=== PATIENT | male | born 1955 | race Caucasian/White ===

== ENCOUNTER 2023-12-18 14:00 | Outpatient (RCR) | payer MEDICARE, SELFPAY | END 2024-05-05 10:50 | disposition home or self-care (01) | LOC: HO.PTCHIC 14:00 | PROVIDERS: PCP Family Medicine; Visit Provider Orthopaedic Surgery | DX: M25.812 Other specified joint disorders, left shoulder (principal); M19.012 Primary osteoarthritis, left shoulder | CPT/HCPCS: 97035; 97110; 97140; 97162 ==